=== PATIENT | female | born 1975 | race Caucasian/White ===

== ENCOUNTER 2024-11-25 10:45 | Emergency (ER) | payer BC, SELFPAY ==
--- OUTSIDE RECORDS SUMMARY | 2015-11-12 04:41 | XMS_ITS | Continuity of Care Document ---
Author Organization [facility] Address [address] [place] [address] Phone Care Team Providers Care Water Tester Name Role Phone Steve, Thushan Unavailable Unavailable Allergies, Adverse Reactions, Alerts Substance Reaction Status Criticality No Known Allergies Active No Inform ation Medications Medication Instructions Dosage Effective Dates (start - stop) Status Comments Cosentyx Pen (2 Pens) 300 mg (150 mg/mL) subcutaneous inject 2 milliliter by subcutaneous route every 4 weeks in the abdomen, thigh, or outer area of upper arm (rotate sites) 300 MG - Active Kanab-Smoothe/FS Scalp Oil 0.01 % apply by topical route thin layer to damp scalp massage well and cover. Leave on for 4 hours or overnight then wash off 0.00 - Active large bottle clobetasol 0.05 % topical solution apply by topical route 2 times every day to the affected scalp area in the morning and evening 0.00 - Active large bottle clobetasol 0.05 % topical foam apply by topical route 2 times every day to the affected area(s) in the morning and evening 0.00 - Active this medicat ion is replacing the Olux Foam prescription. Medication was denied by insurance. Kenalog 0.147 mg/gram Topical Aerosol apply bid - Active Protopic 0.1 % Topical Ointment apply by topical route 2 times every day a thin layer to the affected area(s) ; rub in gently and completely - Active BMN, pt has rx card Xerese 5 %-1 % Topical Cream apply by topical route 5 times every day to the affected area(s) 0.00 - Active Procedures Procedure Date OFFICE/OUTPATIENT VISIT, EST ROUTINE VENIPUNCTURE OFFICE/OUTPATIENT VISIT, EST Ther/proph/diag Inj SC/IM OFFICE/OUTPATIENT VISIT, EST OFFICE/OUTPATIENT VISIT, EST ROUTINE VENIPUNCTURE OFFICE/OUTPATIENT VISIT, EST ROUTINE VENIPUNCTURE Ther/proph/diag Inj SC/IM OFFICE/OUTPATIENT VISIT, EST Ther/proph/diag Inj SC/IM OFFICE/OUTPATIENT VISIT, EST Ther/proph/diag Inj SC/IM ROUTINE VENIPUNCTURE OFFICE/OUTPATIENT VISIT, EST ROUTINE VENIPUNCTURE Ther/proph/diag Inj SC/IM OFFICE/OUTPATIENT VISIT, EST OFFICE/OUTPATIENT VISIT, EST ROUTINE VENIPUNCTURE Ther/proph/diag Inj SC/IM OFFICE/OUTPATIENT VISIT, EST ROUTINE VENIPUNCTURE Ther/proph/diag Inj SC/IM OFFICE/OUTPATIENT VISIT, EST Ther/proph/diag Inj SC/IM OFFICE/OUTPATIENT VISIT, EST Ther/proph/diag Inj SC/IM OFFICE/OUTPATIENT VISIT, EST ROUTINE VENIPUNCTURE Ther/proph/diag Inj SC/IM OFFICE/OUTPATIENT VISIT, EST Ther/proph/diag Inj SC/IM ROUTINE VENIPUNCTURE OFFICE/OUTPATIENT VISIT, EST ROUTINE VENIPUNCTURE Ther/proph/diag Inj SC/IM OFFICE/OUTPATIENT VISIT, EST OFFICE/OUTPATIENT VISIT, EST Ther/proph/diag Inj SC/IM OFFICE/OUTPATIENT VISIT, EST OFFICE/OUTPATIENT VISIT, EST ROUTINE VENIPUNCTURE Ther/proph/diag Inj SC/IM OFFICE/OUTPATIENT VISIT, EST ROUTINE VENIPUNCTURE Ther/proph/diag Inj SC/IM Ther/proph/diag Inj SC/IM OFFICE/OUTPATIENT VISIT, EST ROUTINE VENIPUNCTURE TB INTRADERMAL TEST OFFICE/OUTPATIENT VISIT, EST ROUTINE VENIPUNCTURE OFFICE/OUTPATIENT VISIT, EST LASER TX, SKIN < 250 SQ CM LASER TX, SKIN < 250 SQ CM LASER TX, SKIN < 250 SQ CM LASER TX, SKIN < 250 SQ CM LASER TX, SKIN < 250 SQ CM PHOTOCHEMOTHERAPY WITH UV-B LASER TX, SKIN < 250 SQ CM LASER TX, SKIN < 250 SQ CM LASER TX, SKIN < 250 SQ CM LASER TX, SKIN < 250 SQ CM LASER TX, SKIN < 250 SQ CM OFFICE/OUTPATIENT VISIT, EST ROUTINE VENIPUNCTURE Advance Directives Directive Yes / No Effective Date File Name No Information Encounters Encounter Description Practice Location Reason(s) For Visit Diagnoses Date Provider Providers Copied on Encounter [facility], [address] [place] [address], [place], [place], [id number], [place] tel:[phone] [facility] Location No Information 6 Steve Vaz. [address]23[address] [facility] [address], [place], [id number] , [place]. tel: [phone] [facility], [address] [place] [address], [place], [place], [id number], [place] tel: [phone] [place] Location No Information 6 Steve Thushan. [address]0868 [facility], [facility] , [place], [place], [id number] , [place]. tel: [phone] OFFICE/OUTPA TIENT VISIT, EST [facility], [address] [place] [address], [place], [place], [id number], [place] tel: [phone] [place] Location psoriasis (chief complaint) Psoriasis vulgaris 6 Steve Thushan. 64282 [facility], [facility] [address], [place], [place], [id number] , [place]. tel: [phone] OFFICE/OUTPA TIENT VISIT, EST [facility], [address] [place] [address], [place], [place], [id number], [place] tel: [phone] [place] Location psoriasis (chief complaint) Other psoriasis and similar disorders 0 5 Steve Thushan. [address] [facility], [facility] , [place], [place], [id number] , [place]. tel: [phone] [facility], [address] [place] [address], [place], [place], [id number], [place] tel: [phone] [place] Location psoriasis (chief complaint) Other psoriasis and similar disorders 5 Steve Thushan. 38130 [facility] [address] [place] [address], [id number] , [place]. tel: [phone] OFFICE/OUTPA TIENT VISIT, EST [facility], [address] [place] [address], [place], [place], [id number], [place] tel: [phone] [place] Location psoriasis (chief complaint) Other psoriasis and similar disorders 5 Steve Thushan. [address]73 [facility], [facility] [address], [place], [place], [id number] , [place]. tel:[phone] OFFICE/OUTPA TIENT VISIT, EST [facility], [address] [place] [address], [id number], [place] tel: [phone] [place] Location psoriasis (chief complaint) Other psoriasis and similar disorders 5 Steve Thushan. 13627 [facility] [id number] [place] [address], [id number] , [place]. tel: [phone] OFFICE/OUTPA TIENT VISIT, EST [facility], [address] [place] [address], [id number], [place] tel: [phone] [place] Location psoriasis (chief complaint) Other psoriasis and similar disorders 4 Steve Thushan. 28808 [facility] [address] [place] [address], [id number] , [place]. tel: [phone] OFFICE/OUTPA TIENT VISIT, EST [facility], [address] [place] [address], [address] [place] [address], [place] tel: [phone] [place] Location psoriasis (chief complaint) Other psoriasis and similar disordersScreening for malignant neoplasms of the skin 4 Steve Thushan. 93049 [facility] [address] [place] [address], [id number] , [place]. tel: [phone] [facility], [address] [place] [address], [id number], [place] tel: [phone] [place] [facility] No Information 0 2- 4 Steve Thushan. 68982 [facility] [address] [place] [address], [id number] , [place]. tel: [phone] OFFICE/OUTPA TIENT VISIT, EST [facility], [address] [place] [address], [id number], [place] tel: [phone] [place] Location psoriasis (chief complaint) Other psoriasis and similar disorders May- 5 4 Steve Thushan. 89380 [facility] [address] [place] [address], [id number] , [place]. tel:[phone] OFFICE/OUTPA TIENT VISIT, EST [facility], [address] [facility], [place], [place], [id number], [place] tel: [phone] [place] Location psoriasis (chief complaint) Other psoriasis and similar disorders 3 Steve Thushan. [address]16 [facility] [place], [place], [id number] , [place]. tel:[phone] OFFICE/OUTPA TIENT VISIT, EST [facility], [address] [place] [address], [place], [place], [id number], [place] tel: [phone] [place] Location psoriasis (chief complaint) Other psoriasis and similar disordersOther specified diseases of hair and hair follicles 3 Steve Thushan. [address]3028 [facility] [place], [place], [id number] , [place]. tel:[phone] OFFICE/OUTPA TIENT VISIT, EST [facility], [address] [place] [address], [id number], [place] tel: [phone] [place] Location psoriasis (chief complaint) Other psoriasis and similar disorders 3 Steve Thushan. [address] [facility] [address], [id number] , [place]. tel:[phone] OFFICE/OUTPA TIENT VISIT, EST [facility], [address] [place] [address], [place], [place], [id number], [place] tel: [phone] [place] Location psoriasis (chief complaint) Other psoriasis and similar disorders 3 Steve Thushan. 24303 [facility] [address], [place], [place], [id number] , [place]. tel:[phone] OFFICE/OUTPA TIENT VISIT, EST [facility], [address] [place] [address], [place], [place], [id number], [place] tel: [phone] [place] Location psoriasis (chief complaint) Other psoriasis and similar disorders 0 2 Steve Thushan. 18100 [facility], [facility] , [place], [place], [id number] , [place]. tel: [phone] OFFICE/OUTPA TIENT VISIT, EST [facility], [address] [facility], [place], [place], [id number], [place] tel: [phone] [place] Location psoriasis (chief complaint) Other psoriasis and similar disorders 2 Steve Thushan. 99877 [facility], [facility] , [place], [place], [id number] , [place]. tel: [phone] OFFICE/OUTPA TIENT VISIT, EST [facility], [address] [place] [address], [place], [place], [id number], [place] tel: [phone] [place] Location psoriasis (chief complaint) Other psoriasis and similar disorders 2 Steve Thushan. [address]102 [facility] [place], [place], [id number] , [place]. tel: [phone] OFFICE/OUTPA TIENT VISIT, EST [facility], [address] [place] [address], [place], [place], [id number], [place] tel: [phone] [place] Location psoriasis (chief complaint) Other psoriasis and similar disorders 2 Steve Thushan. [address]37 [facility] [place], [place], [id number] , [place]. tel: [phone] OFFICE/OUTPA TIENT VISIT, EST [facility], [address] [place] [address], [place], [place], [id number], [place] tel: [phone] [place] Location psoriasis (chief complaint) Other psoriasis and similar disorders 0 1 Steve Thushan. 43334 [facility] [place], [place], [id number] , [place]. tel: [phone] OFFICE/OUTPA TIENT VISIT, EST [facility], [address] [place] [address], [place], [place], [id number], [place] tel: [phone] [place] Location psoriasis (chief complaint) Other psoriasis and similar disorders 1 Steve Thushan. 82834 [facility] , [place], [place], [id number] , [place]. tel:[phone] OFFICE/OUTPA TIENT VISIT, EST [facility], [address] [place] [address], [place], [place], [id number], [place] tel: [phone] [place] Location Other psoriasis and similar disorders 1 Steve Thushan. [address] [facility] , [place], [place], [id number] , [place]. tel:[phone] OFFICE/OUTPA TIENT VISIT, EST [facility], [address] [place] [address], [place], [place], [id number], [place] tel: [phone] [place] Location No Information 1 Steve Thushan. [address] [facility] , [place], [place], [id number] , [place]. tel:[phone] OFFICE/OUTPA TIENT VISIT, EST [facility], [address] [place] [address], [place], [place], [id number], [place] tel: [phone] [facility] Location No Information 0 Steve Thushan. [address]1988 [facility] , [place], [place], [id number] , [place]. tel:[phone] OFFICE/OUTPA TIENT VISIT, EST [facility], [address] [place] [address], [place], [place], [id number], [place] tel: [phone] [place] Location No Information 0 Steve Thushan. [address]12 [facility] , [place], [place], [id number] , [place]. tel:[phone] [facility], [address] [place] [address], [place], [place], [id number], [place] tel: [phone] [place] Location No Information Kemar-2 8-201 0 Steve Thushan. [address]3349 [facility] , [place], [place], [id number] , [place]. tel: [phone] OFFICE/OUTPA TIENT VISIT, EST [facility], [address] [place] [address], [place], [place], [id number], [place] tel: [phone] [place] Location No Information Kemar-0 7-201 0 Steve Thushan. [address] [facility] , [place], [place], [id number] , [place]. tel:[phone] OFFICE/OUTPA TIENT VISIT, EST [facility], [address] [place] [address], [place], [place], [id number], [place] tel: [phone] [place] Location No Information 6-200 9 Steve Thushan. 75012 [facility] [address] [place] [address], [id number] , [place]. tel:[phone] OFFICE/OUTPA TIENT VISIT, EST [facility], [address] [place] [address], [place], [place], [id number], [place] tel: [phone] [place] Location No Information Jan-1 1-200 8 Steve Thushan. 85601 [facility] [address] [place] [address], [id number] , [place]. tel:[phone] [facility], [address] [place] [address], [id number], [place] tel: [phone] [place] Location No Information Nov-0 7-200 8 Steve Thushan. 60182 [facility] [address], [place], [place], [id number] , [place]. tel:[phone] [facility], [address] [place] [address], [place], [place], [id number], [place] tel: [phone] [place] Location No Information Nov-0 3-200 8 Steve Thushan. [address] [facility] , [place], [place], [id number] , [place]. tel:[phone] [facility], [address] [place] [address], [place], [place], [id number], [place] tel:[phone] [place] Location No Information Oct-1 5-200 8 Steve Thushan. 47[address] [facility] [address], [place], [place], [id number] , [place]. tel:[phone] [facility], [address] [place] [address], [place], [place], [id number], [place] tel:[phone] [place] Location No Information Oct-1 0-200 8 Steve Thushan. 97055 [facility] [address], [place], [id number] , [place]. tel:[phone] [facility], [address] [place] [address], [place], [place], [id number], [place] tel: [phone] [place] Location No Information Oct-0 6-200 8 Steve Thushan. [address]75 [facility] [address], [place], [place], [id number] , [place]. tel:[phone] [facility], [address] [place] [address], [place], [place], [id number], [place] tel: [phone] [place] Location No Information Oct-0 2-200 8 Steve Thushan. 94323 [facility] [address], [place], [place], [id number] , [place]. tel:[phone] [facility], [address] [place] [address], [place], [place], [id number], [place] tel: [phone] [place] Location No Information Sep-2 6-200 8 Steve Thushan. [address] [facility] , [place], [place], [id number] , [place]. tel:[phone] [facility], [address] [place], [address] [place] [address], tel: [phone] [place] Location No Information Nov-2 3-200 8 Steve Thushan. [address], [address] [place] [address] , [place]. tel: [phone] [facility], [address] [place] [address], [address] [place] [address], tel: [phone] [place] Location No Information Sep-1 8-200 8 Steve Thushan. [address], [id number] , [place]. tel: [phone] [facility], [address] [place] [address], [address] [place] [address], tel: [phone] [facility] Location No Information Sep-1 6-200 8 Steve Thushan. [address], [id number] , [place]. tel: [phone] OFFICE/OUTPA TIENT VISIT, [facility], [address] [place] [address], [address] [place] [address], tel: [phone] [facility] Location No Information 2 5-200 8 Steve Thushan. [address], [id number] , [place]. tel: [phone] Family History Family Member Type Diagnosis Age At Onset No Information Payers Payer name Insurance type Covered libertarian ID Authoriza tion(s) No Information Social History Type Description Quantity Date Captured Comments Alcohol Use Details Unknown Caffeine Use Details Unknown Tobacco Use Status No Information Smoking Status No Information Sex Female Chief Complaint And Reason For Visit No Information Reason For Referral Reason For Referral No Information History Of Present Illness Encounter Date Complaint History Of Prese nt Illness psoriasis Psoriasis began 5 years ago. The problem is mild and improving. Location includes elbows and knees. Relevant history negative for alcohol use. Denies aggravating factors. No diagnostic studies have been performed for this complaint. The patient had a good response to cosentyx. Associated symptoms include scaling. Pertinent negatives include bleeding, cracking, joint stiffness, joint swelling, morning stiffness, nail changes, nail pitting, nail thickening, onycholysis, pain and pruritus. psoriasis The problem is m ild, stabilized and occurs constantly. Risk factors include fair skin. Relevant history negative for alcohol use. The patient had a good response to stelara. Associated symptoms include pain, pruritus and scaling. Pertinent negatives include bleeding, cracking, joint stiffness, joint swelling, morning stiffness, nail changes, nail pitting, nail thickening and onycholysis. Functional Status Date Functional Assessmen t No Information Instructions Date Instruction Additional Infor angelica Discussed risks/bene fits/side effects of treatment Related to Psoriasis vulgaris Discussed multiple t reatment requirements Related to Psoriasis vulgaris Discussed course of treatment Re lated to Other psoriasis and similar disorders Continue medication as needed Re lated to Other psoriasis and similar disorders Discussed multiple t reatment requirements Related to Other psoriasis and similar disorders Discussed risks/bene fits/side effects of treatment Related to Other psoriasis and similar disorders Patient/guardian und erstood and made an informed decision regarding treatment Related to Other psoriasis and similar disorders Recommend Olux for scalp Discussed risks/bene fits/side effects of treatment Discussed course of treatment Continue medication as needed Assessments Type Assessment Date No Information Patient Care Teams Name Effective Dates (start - stop) Status Members No Information
[2024-11-25 10:55] VITALS: BP 137/91; PULSE 80; RESP 18; TEMP 36.3; O2SAT 99
--- NOTE | 2024-11-25 11:31 | ED.SKABFB ---
HPI - Skin/Abscess/Foreign Bdy General Chief complaint: Skin/Abscess/Foreign Body Stated complaint: LT Arm Insect Bite Time Seen by Provider: 11/25/24 11:15 Source: patient, RN notes reviewed and old records reviewed Mode of arrival: ambulatory Limitations: no limitations History of Present Illness HPI narrative: 48 year old female who presents to [facility] care with complaints of being stung by red wasp to the lateral aspect of her left forearm on Monday. Patient reports that she has increased swelling and redness of her left arm which now extends from her left wrist up to the AC space with itching, increased pain and tightness pressure feeling. She reports that she has been taking Benadryl and Tylenol for her discomfort. MD complaint: insect bite/sting and other (erythema and swelling of left arm) Onset (ago): day(s) (2) Location: LUE Severity scale (1-10): 7 Quality: aching, pruritic and other (pressure feeling) Treatments prior to arrival: Benadryl and other (Tylenol) Related Data Home Medications ?Medication ?Instructions ?Recorded ?Confirmed ?Last Taken ?Type phentermine 37.5 mg tablet mg 11/25/24 Unknown History Allergies Allergy/AdvReac Type Severity Reaction Status Date / Time No Known Allergies Allergy Unverified 11/25/24 10:58 Review of Systems Review of Systems: CONSTITUTIONAL: Denies fever, chills, or sweats. CARDIOVASCULAR: Denies chest pain, palpitations, or edema. RESPIRATORY: Denies cough or dyspnea. SKIN: Reports wasp sting to the left lateral forearm 2 days ago now has increased redness with swelling to her left forearm to AC region with itching and pressure feeling MUSCULOSKELETAL: Denies joint pain or myalgia. NEUROLOGIC: Denies headache, numbness, or weakness. All systems reviewed & are unremarkable except as noted in HPI and below PMFSH Past Medical History Medical History (Updated 11/26/24 @ 08:37 by Andie Saab NP) Psoriasis Surgical History Surgical History (Updated 11/26/24 @ 08:32 by Andie Saab NP) History of hysterectomy Social History Social History (Updated 11/26/24 @ 08:33 by Andie Saab NP) Smoking status: Never smoker Living arrangements: with family Gender identity (if verbalized by the patient): Female Comments At time of signature, agree with nursing past medical, surgical, social and family history. There is no relevant family history pertinent to the presenting complaint Exam Narrative: GENERAL: Well-appearing, well-nourished, and in no acute distress. HEAD: Normocephalic, atraumatic. EYES: PERRLA, conjunctivae clear, and EOMI. ENT: Mucous membranes moist. Oropharynx without edema, erythema or lesions. NECK: Supple. No lymphadenopathy CHEST: Clear to auscultation. No respiratory distress.SAO2 99% on room air . HEART: Regular rate and rhythm. SKIN: Warm, dry.? Patches of erythema and edema noted from wrist to AC region of left arm after sustaining wasp sting to the lateral forearm 2 days ago. Patient reports itching and pressure feeling to the skin of left forearm, NEURO:? Alert and oriented x3. PSYCH: Normal mood and affect Course Course Emergency Course: Patient is aware of diagnosis, understands and agrees to treatment plan.? Anticipatory guidance given.? Patient agrees to follow-up as directed and is aware of reasons to seek care at the emergency department. Portions of this record may have been created with voice recognition software Level of Care: Express Care Visit Vital Signs Vital signs: Vital Signs Temperature 36.3 C L 11/25/24 10:55 Pulse Rate 80 11/25/24 10:55 Respiratory Rate 18 11/25/24 10:55 Blood Pressure 137/91 H 11/25/24 10:55 Pulse Oximetry 99 11/25/24 10:55 Oxygen Delivery Room Air 11/25/24 10:55 Temperature 36.3 C L 11/25/24 10:55 Pulse Rate 80 11/25/24 10:55 Respiratory Rate 18 11/25/24 10:55 Blood Pressure 137/91 H 11/25/24 10:55 Pulse Oximetry 99 11/25/24 10:55 Oxygen Delivery Room Air 11/25/24 10:55 Reviewed MDM - Skin/Abscess/Foreign Bdy MDM Narrative Medical decision making narrative: Does not appear at this time to be erythema multiforme, bullous, SJS, TEN; no evidence at this time to suggest RMSF, endocarditis or Lyme disease; patient looks well, nontoxic and is tolerating oral intake; no neurologic signs or symptoms; no headache, photophobia or neck pain; afebrile; appropriate for initial outpatient treatment; discussed the importance of follow-up, patient agrees; question, viral exanthema, contact dermatitis, allergic dermatitis, eczema, urticaria.. No soft palate or uvula edema, no tongue, lip edema or other mucosal involvement, no respiratory compromise, no stridor, no wheezing, no wheezing, no history of syncope, no hypotension, no nausea, vomiting, or diarrhea.? Instructed patient to go to nearest ER immediately for any worsening symptoms including but not limited to: fever, spreading rash, pain, sore throat, headache, dizziness, chest pain, trouble breathing, or any symptoms concerning to the patient. Differential Diagnosis Differential diagnosis: Likely abscess of skin or subcutaneous tissue, cellulitis, contact dermatitis and other (wasp sting) Medical Records Attestation: I reviewed the patient's medical records. Critical Care Time Critical Care Time Critical Care Time: No Discharge Plan Discharge Clinical Impression: Cellulitis of forearm, left Sting, wasp Qualifiers: Encounter type: initial encounter Injury intent: accidental or unintentional Qualified Code(s): T63.461A - Toxic effect of venom of wasps, accidental (unintentional), initial encounter Patient Disposition: Home Condition: Stable Instructions: Antibiotic Form, Abscess (ED) Additional Instructions: Cleanse left arm with liquid dial soap twice daily apply Mupiricin ointment to wasp sting watch for increasing infection--redness, swelling, drainage Tylenol or Ibuprofen for any pain or fever daily follow up with PCP in 7-10 days for a wound check recheck if develop fever, chills, increasing symptom Go to the ER if your symptoms become worse of if ANY new symptoms develop Oral antibiotic as prescribed take all doses of medications Medrol dose pack take as ordered Zyrtec or Claritin daily may use Benadryl p.r.n. for any itching If your symptoms persist, change or worsen significantly before you can contact your personal physician then please, without delay, go to the emergency department for further evaluation. Follow-up with PCP in 7-10 days or sooner if needed Follow up with PCP soon in regards to your blood pressure which is elevated above threshold for referral. Blood pressure above 120/80 may indicate pre-hypertension. 137/91 Patient Language: Khmer Prescriptions: New mupirocin [Centany] 2 % ointment 1 applic topical BID Qty: 22 0RF Rx Instructions: to left arm sting cephalexin 500 mg capsule 500 mg PO Q12H Qty: 14 0RF methylprednisolone [Medrol (Chano)] 4 mg tablets,dose pack See Rx Instructions .ROUTE .COMPLEX Qty: 21 0RF Rx Instructions: orally per package directions No Action phentermine 37.5 mg tablet Follow-up/Referrals: PHYSICIAN,AUDIO/VIDEO TECHNICIAN [Primary Care Provider, Internal Medicine] Time of Disposition: 11:46 Quality [place] Coma Scale Eyes: Open Verbal: Oriented and Alert Motor: Follows Commands [place] Coma Total Score: 15
== END 2024-11-25 11:50 | disposition home or self-care (01) ==
PROVIDERS: Emergency Provider Registered Nurse
DX: L03.114 Cellulitis of left upper limb (principal); T63.461A Toxic effect of venom of wasps, accidental (unintentional), initial encounter; L40.9 Psoriasis, unspecified
CPT/HCPCS: 99213; A4565; G0463

== ENCOUNTER 2024-12-23 08:35 | Emergency (ER) | payer BC, SELFPAY ==
[2024-12-23 08:44] VITALS: BP 147/90; PULSE 100; RESP 16; TEMP 36.8; O2SAT 100
--- OUTSIDE RECORDS SUMMARY | 2024-12-23 08:46 | XMS_ITS | Clinical Summary ---
Author Organization [facility] Address [facility] [place] [address] Care Team Providers Care Hog Cooler Name Role Phone Danya Ch MD Primary Care Provider [phone] Allergies No known active allergies Medications Deucravacitinib (SOTYKTU) 6 MG Tab Take 1 tablet by mouth daily. 02/27/2022 Active phentermine (ADIPEX-P) 37.5 MG tablet Take 1 tablet (37.5 mg total) by mouth daily. 02/27/2023 Active topiramate (TOPAMAX) 25 MG tabletIndication s:Chronic tension-type headache, intractable Take 1-2 tablets (25-50 mg total) by mouth daily. 90 tablet 3 08/07/2023 Active Active Problems Problem Noted Date Diagnosed Date Encounter for screening for malignant neoplasm o f colon 01/24/2023 Overview (01/24/2023): Added automatically from request for surgery [id number] Psoriasis 03/14/2022 Immunizations Immunization Administration Dates Next Due Influenza Adult (Generic) 01/26/2022,01/27/2021 MODERNA COVID-19 (12+) MRNA, LNP-S, PF, 100 MCG/ 0.5 ML DOSE 07/14/2020,06/16/2020 MODERNA COVID-19 (FIRE EATER MAY KANE), MRNA, LNP-S, PF, 50 MCG/ 0.25 ML DOSE 03/22/2021 Family History Medical History Relation Comments Colon Cancer Father None Mother Diabetes Paternal Grandmother Relation Status Comments Father Alive Mother Alive Paternal Grandmother Social History Tobacco Use Types Packs/Day Years Used Date Smoking Tobacco: Former Cigarettes Q uit: 03/27/2000 Passive Smoke Exposure: Past Smokeless Tobacco: Never Tobacco Cessation:Counseling Given: No Alcohol Use Standard Drinks/Week Comments Yes 0 (1 standard drink = 0.6 oz pur e alcohol) socially PHQ-2 Answer Date Recorded Patient Health Questionnaire-2 Score 0 08/07/2023 Comments No Sex and Gender Information Value Date Recorded Sex Assigned at Not on file Legal Sex Female 8:26 PM CDT Gender Identity Not on file Sexual Orientation Not on file Last Filed Vital Signs Vital Sign Reading Time Taken Comments Blood Pressure 125/75 08/07/2023 10:58 AM CDT Pulse 74 08/07/2023 10:58 AM CDT Temperature 36.7 C (98.1 F) 08/07/2023 10:58 AM CDT Respiratory Rate 16 08/07/2023 10:58 AM CDT Oxygen Saturation 98% 08/07/2023 10:58 AM CDT Inhaled Oxygen Concentration - - Weight 82.2 kg (181 lb 3.2 oz) 08/07/2023 10:58 AM CDT Height 162.6 cm (5' 4) 08/07/2023 10:58 AM CDT Body Mass Index 31.1 08/07/2023 10:58 AM CDT Plan of Treatment Health Maintenance Due Date Last Done Comments Annual Physical 1977 DTaP, Tdap and Td Vaccines ( 1 - Tdap) 1993 Hepatitis B Vaccines (1 of 3 - 19+ 3-dose series) 1993 Cervical Cancer Screening Pa p with HPV Testing (Age 30 to 64) Every 5 Years 2004 Cervical Cancer Screening Pa p Smear (Age 30 to 64) Every 3 Years 11/27/2023 Cervical Cancer Screening wi th HPV 11/27/2023 PHQ-2 (Physician [place]) 03/27/2024 08/07/2023 COVID-19 Vaccine (4 - 2024-2 6 season) 2024 03/22/2021, 07/14/2020, 06/16/2020 Pneumococcal Vaccine: 50+ Years (1 of 1 - PCV) 2024 Zoster Vaccines (1 of 2) 2024 Mammogram Screening 01/10/2025 01/10/2023, 01/03/2022, 08/08/2019 Colorectal Cancer Screening Colonoscopy (10 Years) 03/01/2033 03/01/2023, 03/01/2023 Hepatitis C Completed 10/07/2016, 03/23/2016 Meningococcal B Vaccine Aged Out No l onger eligible based on patient's age to complete this topic Meningococcal Vaccine Aged Out No jaspreet savanna eligible based on patient's age to complete this topic RSV Immunizations Under 20 Months Aged Out No longer eligible b ased on patient's age to complete this topic Procedures Procedure Name Priority Date/Time Associated Diagnosis Comments COLONOSCOPY Routine 03/01/2023 9:39 AM EDUCATIONAL INSTITUTION CURATOR MG SCREENING W MIGUEL HUYEN DIGI Routine 01/10/2023 2:56 PM CDT Encounter for screening mammogram for malignant neoplasm of breast HEP C SCANNED ORDERS Routine 10/07/2016 from Last 3 Months or Most Recently Relevant to Health Maintenance Results * MG SCREENING W MIGUEL HUYEN DIGI (01/10/2023 2:56 PM CDT) Anatomical Region Laterality Modality Breast Bilateral Mammography 01/10/2023 4:12 PM CDT Narrative 01/10/2023 4:15 PM CDT IMAGING STUDIES: Bilateral screening mammograms with computer-aided detection with 2-D and 3-D imaging. Tomosynthesis. DATE: 01/10/2023 2:41 PM HISTORY: Encounter for screening mammogram for malignant neoplasm of breast . COMPARISON: 01/03/2022. 08/08/2019 TISSUE TYPE: There are scattered areas of fibroglandular density. FINDINGS: 1. Mild scattered fibroglandular tissue pattern is present. 2. No malignant microcalfcifications, new dominant masses, or architectural distortion. 3. No skin thickening or nipple retraction. Axillary regions are within normal limits. IMPRESSION: 1. No mammographic evidence of malignancy. 2. Assessment: ACR BI-RADS 1 - NEGATIVE 3 .Routine Screening Bilateral MQSA BI-RADS Categories: Category 0 - needs additional imaging evaluation. Category 1 - negative. Category 2 - benign findings. Category 3 - probably benign findings, but short interval follow-up is recommended. Category 4 - suspicious abnormality and biopsy should be considered though the lesion may well be benign. Category 5 - highly suggestive of malignancy and appropriate action should be taken. Category 6 - known biopsy-proven malignancy A) A negative report should not delay a biopsy if a dominant or clinically suspicious mass is present. B) Adenosis and dense breasts may obscure an underlying neoplasm. C) Study interpreted with computer aided detection. Ordered By: KRISTA FLOYD Interpreted By: Apple Guzman, 01/10/2023 4:12 PM us Krista Floyd DO MAMMO Final Resu lt * HEP C SCANNED ORDERS (10/07/2016) 10/07/2016 [facility] Scanned SCANNING Edited Res ult - Final [facility] from Last 3 Months or Most Recently Relevant to Health Maintenance Insurance Care Teams Hog Cooler Relationship Specialty [place] [id number] [phone] PCP - General INTERNAL MEDICINE 10/17/23
--- NOTE | 2024-12-23 08:47 | ED_ITS ---
HPI - URI/Sore Throat General Chief Complaint: Upper Respiratory Infection Stated Complaint: Sore throat Time Seen by Provider: 12/23/24 08:47 Source: patient Mode of arrival: ambulatory Limitations: no limitations History of Present Illness HPI Narrative: 49-year-old female presents with complaint of sore throat for 3 days. Patient reports fatigue, has been laying in bed for the past 2 days. Taking Tylenol for pain. All systems reviewed and negative except as noted above. Related Data Home Medications ?Medication ?Instructions ?Recorded ?Confirmed ?Last Taken ?Type phentermine 37.5 mg tablet mg 11/25/24 Unknown Histor y Allergies Allergy/AdvReac Type Severity Reaction Status Date / Time No Known Allergies Allergy Verified 12/23/24 08:38 [facility] Past Medical History Medical History (Updated 12/23/24 @ 08:53 by Yuni Mejia NP) Psoriasis Surgical History Surgical History (Updated 11/26/24 @ 08:32 by Andie Saab NP) History of hysterectomy Social History Social History (Updated 11/26/24 @ 08:33 by Andie Saab NP) Smoking status: Never smoker Living arrangements: with family Gender identity (if verbalized by the patient): Female Comments At time of signature, agree with nursing past medical, surgical, social and family history. There is no relevant family history pertinent to the presenting complaint. Exam Narrative: GENERAL: This is a well-nourished, well-developed patient, ill-appearing but in no acute distress HEAD: normocephalic, atraumatic. EYES: PERRL. Sclera clear/white. Vision is grossly intact. EARS: External ears normal, auditory canals clear and without drainage, TMs normal without perforation. Hearing grossly intact. NOSE: External nose normal with no obvious nasal discharge, nares without redness, no rhinorrhea. THROAT: Mucous membranes moist, Erythematous, tonsils 2+ bilaterally with exudates NECK: Neck supple, non-tender without lymphadenopathy, masses or thyromegaly. CARDIOVASCULAR: Regular rate and rhythm without murmurs, gallops, or rubs. RESPIRATORY: Clear to auscultation. Breath sounds equal bilaterally. No wheezes, rales, or rhonchi. SKIN: warm, Dry, intact with no suspicious lesions or rash, good texture and turgor. NEURO: awake, alert, and oriented to person, place and time. There were no obvious focal neurologic abnormalities. EXTREMITIES: No joint tenderness, effusion, or edema noted. Course Course Level of Care: Express Care Visit Vital Signs Vital signs: Vital Signs Temperature 36.8 C 12/23/24 08:44 Pulse Rate 100 12/23/24 08:44 Respiratory Rate 16 12/23/24 08:44 Blood Pressure 147/90 H 12/23/24 08:44 Pulse Oximetry 100 12/23/24 08:44 Temperature 36.8 C 12/23/24 08:44 Pulse Rate 100 12/23/24 08:44 Respiratory Rate 16 12/23/24 08:44 Blood Pressure 147/90 H 12/23/24 08:44 Pulse Oximetry 100 12/23/24 08:44 reviewed MDM - URI/Sore Throat MDM Narrative Medical decision making narrative: positive rapid strep. Will treat with amoxicillin. Patient is alert, nontoxic. Differential Diagnosis Differential diagnosis: Likely upper respiratory infection, sinusitis, viral infection, influenza and pharyngitis Lab Data Labs: Lab Results 12/23/24 Range/Units 08:47 POC Grp A Strep Screen Positive (Negative) Discharge Plan Discharge Clinical Impression: Strep throat Patient Disposition: Home Condition: Stable Instructions: Antibiotic Form, Strep Throat (ED) Additional Instructions: your strep test was positive today. Take antibiotic as prescribed until gone. Change toothbrush after taking antibiotic for 24 hours. Take Tylenol or ibuprofen every 6-8 hours as needed for pain and fever. Drink at least 64 oz of water a day. See your primary care physician if symptoms are not improving. Patient Language: Marshallese Prescriptions: New amoxicillin 500 mg capsule 500 mg PO Q12H 10 Days Qty: 20 0RF No Action phentermine 37.5 mg tablet Follow-up/Referrals: PHYSICIAN,COMPUTER REPAIRER [Primary Care Provider, Internal Medicine] Stand Alone Forms: Work/School Release IP Time of Disposition: 08:54
[2024-12-23 08:48] LABS: EDSTREPNEGPOS1 Positive (Negative)
== END 2024-12-23 08:55 | disposition home or self-care (01) ==
PROVIDERS: Emergency Provider Nurse Practitioner Family
DX: J02.0 Streptococcal pharyngitis (principal); L40.9 Psoriasis, unspecified
CPT/HCPCS: 87880; 99213; G0463